=== PATIENT | male | born 1990 | race Caucasian/White ===

== ENCOUNTER 2023-06-26 12:03 | Emergency (ER) | payer OTHER, SELFPAY ==
--- NOTE | 2023-06-26 12:04 | ECG_ITS ---
Measurements Intervals [place] Rate: 74 P: 1 IN: 107 QRS: 62 QRSD: 90 T: 56 QT: 384 QTc: 428 Interpretive Statements SINUS RHYTHM WITH SHORT IN INTERVAL BORDERLINE ECG NO PREVIOUS ECG AVAILABLE FOR COMPARISON Electronically Signed On 06-26-2023 12:58:48 [employer] by Marlon Spaulding D.O.
[2023-06-26 12:12] VITALS: BP 123/68; PULSE 119; RESP 20; TEMP 36.2; O2SAT 98
== END 2023-06-26 16:33 | disposition left against medical advice (07) ==
LOC: ANHED 16:26
PROVIDERS: Emergency Provider Student in an Organized Health Care Education/Training Program
DX: R55 Syncope and collapse (principal)
CPT/HCPCS: 93005; 99199

== ENCOUNTER 2023-12-26 20:12 | Emergency (ER) | payer BC, SELFPAY ==
[2023-12-26] VITALS (16 sets, daily range): BP systolic 116–133; BP diastolic 67–86; PULSE 63–90; RESP 12–16; TEMP 36.2; O2SAT 97–100
--- NOTE | 2023-12-26 21:07 | ED.GENADULT ---
HPI - General Adult General Chief complaint: Overdose <Tomy Mcguire MD - Last Filed: 12/27/23 21:06> Stated complaint: OD/BRADY <Tomy Mcguire MD - Last Filed: 12/27/23 21:06> Time Seen by Provider: 12/26/23 20:56 <Tomy Mcguire MD - Last Filed: 12/27/23 21:06> History of Present Illness HPI narrative: [age] old male presents to the emergency department for evaluation for intentional ingestion of fentanyl and Xanax. Patient was facing pending incarceration when he decided to ingest up to 15 pills of fentanyl and 3 x 2 mg Xanax. Patient states this is not at him for self-harm or suicide. Patient states he was just attempting to prevent getting charged by the police. <Tomy Mcguire MD - Last Filed: 12/27/23 21:06> Related Data Allergies/adverse reactions: Allergies Allergy/AdvReac Type Severity Reaction Status Date / Time No Known Allergies Allergy Verified 06/26/23 12:03 <Tomy Mcguire MD - Last Filed: 12/27/23 21:06> Review of Systems Review of Systems: All systems reviewed & are unremarkable except as noted in HPI and below <Tomy Mcguire MD - Last Filed: 12/27/23 21:06> Exam Narrative: APPEARANCE: Somnolent but arouses to verbal stimuli HEAD: normocephalic, atraumatic. EYES: PERRLA/EOMI, conjunctivae clear. NOSE: Normal no drainage EARS:TMS clear with good light reflex. THROAT: Pharynx clear, no exudate. NECK: Supple. No adenopathy, no masses. RESPIRATORY: Airway patent, respirations nonlabored. Clear to auscultation bilaterally, no rales, rhonchi, wheezing. CARDIOVASCULAR: Regular rate and rhythm without murmurs rubs or gallops. ABDOMINAL: Soft, nontender, nondistended, normal bowel sounds MUSCULOSKELETAL: Moves all extremities. Strength/ROM intact, No edema, No calf tenderness. NEURO: Alert. Cranial nerves II through XII intact. Good gait. Good coordination SKIN: Warm, dry. Normal Color <Tomy Mcguire MD - Last Filed: 12/27/23 21:06> Course Course Emergency Course: ZYCH: Patient signed out pending sobriety. Patient was resting comfortably with stable vital signs. Patient was able ambulate to the restroom with a steady gait. We called his mother his mother is coming to pick him up. Discharged <Kailash Layne MD - Last Filed: 12/27/23 01:30> Vital Signs Vital signs: Vital Signs Temperature 97.1 F L 12/26/23 20:18 Pulse Rate 90 12/26/23 20:18 Respiratory Rate 12 12/26/23 20:18 Blood Pressure 120/85 12/26/23 20:18 Pulse Oximetry 97 12/26/23 20:18 Oxygen Delivery Room Air 12/26/23 20:18 Temperature 97.9 F 12/27/23 02:51 Pulse Rate 68 12/27/23 02:51 Respiratory Rate 16 12/27/23 02:51 Blood Pressure 110/70 12/27/23 02:51 Pulse Oximetry 98 12/27/23 02:51 Oxygen Delivery Room Air 12/26/23 21:42 <Tomy Mcguire MD - Last Filed: 12/27/23 21:06> Vital Signs Temperature 97.1 F L 12/26/23 20:18 Pulse Rate 90 12/26/23 20:18 Respiratory Rate 12 12/26/23 20:18 Blood Pressure 120/85 12/26/23 20:18 Pulse Oximetry 97 12/26/23 20:18 Oxygen Delivery Room Air 12/26/23 20:18 Temperature 97.9 F 12/27/23 02:51 Pulse Rate 68 12/27/23 02:51 Respiratory Rate 16 12/27/23 02:51 Blood Pressure 110/70 12/27/23 02:51 Pulse Oximetry 98 12/27/23 02:51 Oxygen Delivery Room Air 12/26/23 21:42 <Kailash Layne MD - Last Filed: 12/27/23 01:30> Medical Decision Making MDM Narrative Medical decision making narrative: [age] male present to the emergency department for evaluation for intentional ingestion of fentanyl and Xanax. Poison Control was consulted and they recommended observing the patient for 4-6 hours. Patient is currently saturating 90% on room air. Patient is somnolent but does respond to verbal stimuli. At time of sign-out patient is undergoing his 6 hour observation time. <Tomy Mcguire MD - Last Filed: 12/27/23 21:06>
[2023-12-26 21:30] LABS: Basophils Absolute Auto 0.1 K/mm3 (0.0-0.1); Basophils Percent Auto 0.8 % (0.2-1.2); Eosinophils Absolute Auto 0.4 K/mm3 (0-0.3); Eosinophils Percent Auto 5.2 % (0-4.4); Hematocrit 37.8 % (42.0-52.0); Hemoglobin 12.7 g/dL (14.0-18.0); Immature Granulocyte Absolute 0.02 K/mm3 (0.00-0.031); Immature Granulocyte Percent A 0.3 % (0-0.5); Lymphocytes Absolute Auto 1.97 K/mm3 (0.9-3.2); Lymphocytes Percent Auto 27.9 % (18.3-44.2); Mean Corpuscular HGB Conc 33.6 g/dl (32-36); Mean Corpuscular Hemoglobin 29.1 pg (26-34); Mean Corpuscular Volume 86.5 fl (80-100); Mean Platelet Volume 9.3 fl (7.4-10.4); Monocytes Absolute Auto 0.4 K/mm3 (0.1-0.6); Monocytes Percent Auto 5.8 % (2.6-8.5); Neutrophils Absolute Auto 4.2 K/mm3 (1.3-6.7); Platelet Count Result 221 k/mm3 (150-375); Red Blood Count 4.37 M/mm3 (4.6-6.20); Red Cell Distribution Width 12.8 % (11.5-14.5); White Blood Count 7.1 K/mm3 (4.5-10.0)
[2023-12-26] MEDS: SODIUM CHLORIDE 0.9% IV 1,000 ML 999 ML IV CONT (21:40)
[2023-12-26 21:42] LABS: Acetaminophen < 10 ug/mL (10-30); Ethanol < 10 mg/dL (<10); Salicylate < 1.0 mg/dL (2-20)
[2023-12-26 21:45] LABS: Alanine Aminotransferase 12 U/L (6-50); Albumin Level 3.9 g/dL (3.5-5.1); Alkaline Phosphatase 67 U/L (38-126); Anion Gap 7 mmol/L (4-12); Aspartate Amino Transferase 23 U/L (17-59); Bilirubin,Total 0.5 mg/dL (0.2-1.3); Blood Urea Nitrogen 15 mg/dL (9-20); Calcium 8.7 mg/dL (8.4-10.2); Carbon Dioxide 29 mmol/L (22-30); Chloride 100 mmol/L (98-107); Estimated CRCL calculation 121 ml/min; Estimated Glomerular Filt Rate > 60; Glucose 96 mg/dL (65-110); Potassium 3.2 mmol/L (3.4-5.0); Sodium 136 mmol/L (137-145)
[2023-12-27 00:05] VITALS: PULSE 58; RESP 18
[2023-12-27 00:19] VITALS: PULSE 52; RESP 16
--- NOTE | 2023-12-27 00:36 | PC.NURSE ---
poison control updated.
--- NOTE | 2023-12-27 00:39 | PC.NURSE ---
[facility] is closing the case with a plan to discharge.
--- NOTE | 2023-12-27 01:24 | PC.NURSE ---
pt ambulated to bathroom with assistance
[2023-12-27 02:51] VITALS: BP 110/70; PULSE 68; RESP 16; TEMP 36.6; O2SAT 98
== END 2023-12-27 02:53 | disposition home or self-care (01) ==
PROVIDERS: Emergency Provider Emergency Medicine
DX: T40.411A Poisoning by fentanyl or fentanyl analogs, accidental (unintentional), initial encounter (principal); T42.4X1A Poisoning by benzodiazepines, accidental (unintentional), initial encounter
CPT/HCPCS: 36415; 80053; 80307; 85025; 96360; 99284; J7030